=== PATIENT | male | born 1985 | race Caucasian/White ===

== ENCOUNTER 2021-03-06 15:24 | Inpatient (IN) | payer OTHER, MEDICARE, MEDICAID ==
[~2021-03-06 15:24] MED LIST: Iopamidol-370 76% 500 ML 1 ML ONE
[2021-03-06] MEDS ORDERED: Ondansetron PF 4 MG/2 ML Vial ONE (15:29)
[2021-03-06] MEDS ORDERED: Morphine 4 MG/ML VIAL ONE (15:29)
[2021-03-06] MEDS ORDERED: CEFAZOLIN 1 GM VIAL ONE (15:34)
[2021-03-06] MEDS ORDERED: Boostrix 0.5 ML (Tdap) VIAL ONE (15:34)
[2021-03-06 15:51] LABS: #Basophils 0.1 thou/uL (0.0-0.2); #Eosinphils 0.4 thou/uL (0.0-0.7); #Lymphocytes 4.3 thou/uL (1.20-3.40); #Monocytes 0.8 thou/uL (0.11-0.59); %Eosinophils 2.8 % (0.0-10.0); %Lymphocytes 33.9 % (21.0-51.0); %Monocytes 6.6 % (0.0-10.0); %Neutrophils 55.7 % (42.0-75.0); Hemoglobin 16.2 g/dL (14.0-18.0); Mean Corpuscular HGB CONC 34.5 g/dL (32.0-36.0); Mean Corpuscular Hemoglobin 30.9 pg (27.0-31.0); Mean Corpuscular Volume 89.7 fL (78.0-98.0); Mean Platelet Volume 8.1 fL (7.4-10.4); Platelet Count 302 thou/uL (130-400); RBC Distribution Width 12.5 % (11.5-14.5); Red Blood Cell (RBC) Count 5.24 mill/uL (4.70-6.10); White Blood Cell (WBC) Count 12.6 thou/uL (4.8-10.8)
[2021-03-06 16:13] LABS: ALT (SGPT) 86 U/L (8-55); AST (SGOT) 69 U/L (5-34); Acetaminophen Less than 6.0 mcg/mL (10.0-30.0); Albumin 4.7 g/dL (3.5-5.0); Alcohol Less than 10 mg/dL (Less than 10); Alkaline Phosphatase 153 U/L (40-110); Anion Gap 14 mmol/L (10-20); BUN (Urea Nitrogen) 14 mg/dL (8.9-20.6); Bilirubin, Total 0.5 mg/dL (0.2-1.2); Calc. Creatinine Clearance 0 mL/min (70-130); Calcium 9.4 mg/dL (7.8-10.44); Carbon Dioxide 25 mmol/L (22-29); Chloride 104 mmol/L (98-107); Globulin 3.3 g/dL (2.4-3.5); Glucose 135 mg/dL (70-105); Lipase 18 U/L (8-78); Potassium 4.1 mmol/L (3.5-5.1); Salicylate Less than 8.0 mg/dL (15.0-30.0); Sodium 139 mmol/L (136-145)
[2021-03-06] MEDS ORDERED: Fentanyl 100 MCG/2 ML VIAL ONE (16:36)
[2021-03-06] MEDS ORDERED: hydrALAZINE 20 MG/ML VIAL SLOW IVP PRN (17:22)
[2021-03-06] MEDS ORDERED: Ondansetron PF 4 MG/2 ML Vial IVP PRN (17:22)
[2021-03-06] MEDS ORDERED: Dextrose 50% Abboject 50 ML SYRINGE SLOW IVP PRN (17:22)
[2021-03-06] MEDS ORDERED: Dextrose 5% in Water 1,000 ML IV PRN (17:22)
[2021-03-06] MEDS ORDERED: Cyclobenzaprine 10 MG TAB PO PRN (17:24)
[2021-03-06] MEDS ORDERED: traMADol HCl 50 MG TAB PO PRN ×2 (17:24)
[2021-03-06 19:40] VITALS: BMI 32.1
[2021-03-06] MEDS ORDERED: Silver Nitrate Application 1 EACH TOP SCH (21:00)
[2021-03-06] MEDS: Acetaminophen 500 MG TAB PO SCH (21:19)
[2021-03-06] MEDS: Clindamycin 150 MG CAP PO SCH (21:20)
[2021-03-06] MEDS: Famotidine 20 MG TAB PO SCH (21:20)
[2021-03-06] MEDS: Gabapentin 300 MG CAP PO SCH (21:20)
[2021-03-06] MEDS: Senokot S 8.6-50 MG TAB PO SCH (21:21)
[2021-03-06] MEDS: Sodium Chloride 0.9% 1,000 ML IV SCH (21:22)
[2021-03-06] MEDS: Bupropion 150 MG SR TAB PO SCH (21:29)
[2021-03-06] MEDS: Morphine 4 MG/ML VIAL SLOW IVP PRN (23:27)
[2021-03-07] MEDS ORDERED: diphenhydrAMINE 50 MG/ML VIAL ONE (00:18)
[2021-03-07] MEDS ORDERED: diphenhydrAMINE 50 MG/ML VIAL IVP SCH (00:30)
[2021-03-07] MEDS: Acetaminophen 500 MG TAB PO SCH ×2 (01:04→09:01)
[2021-03-07 01:06] LABS: Amphetamine Not Detected (NotDetected); Barbiturates Screen Not Detected (NotDetected); Benzodiazepine Screen Not Detected (NotDetected); Cocaine Metabolite Screen Not Detected (NotDetected); Methadone Not Detected (NotDetected); Methamphetamine Not Detected (NotDetected); Opiate Screen Detected (NotDetected); Oxycodone Screen Not Detected (NotDetected); Phencyclidine (PCP) Not Detected (NotDetected); THC/Cannabinoid Screen Not Detected (NotDetected); Tricyclic Screen Not Detected (NotDetected)
[2021-03-07] MEDS ORDERED: GUAIFENESIN SF SOLN 200 MG/10 ML UDCUP PO PRN (02:18)
[2021-03-07] MEDS: Morphine 4 MG/ML VIAL SLOW IVP PRN (02:38)
[2021-03-07 07:26] LABS: #Basophils 0.1 thou/uL (0.0-0.2); #Eosinphils 0.2 thou/uL (0.0-0.7); #Lymphocytes 2.8 thou/uL (1.20-3.40); #Monocytes 1.1 thou/uL (0.11-0.59); #Neutrophils 8.4 thou/uL (1.40-6.50); %Basophils 0.9 % (0.0-1.0); %Eosinophils 1.6 % (0.0-10.0); %Lymphocytes 22.3 % (21.0-51.0); %Monocytes 8.6 % (0.0-10.0); %Neutrophils 66.6 % (42.0-75.0); Hemoglobin 14.3 g/dL (14.0-18.0); Mean Corpuscular HGB CONC 34.1 g/dL (32.0-36.0); Mean Corpuscular Hemoglobin 31.1 pg (27.0-31.0); Mean Corpuscular Volume 91.2 fL (78.0-98.0); Mean Platelet Volume 7.9 fL (7.4-10.4); Platelet Count 232 thou/uL (130-400); RBC Distribution Width 12.4 % (11.5-14.5); Red Blood Cell (RBC) Count 4.58 mill/uL (4.70-6.10); White Blood Cell (WBC) Count 12.6 thou/uL (4.8-10.8)
[2021-03-07 07:48] LABS: Anion Gap 16 mmol/L (10-20); BUN (Urea Nitrogen) 14 mg/dL (8.9-20.6); Calc. Creatinine Clearance 108 mL/min (70-130); Carbon Dioxide 25 mmol/L (22-29); Chloride 103 mmol/L (98-107); Glucose 164 mg/dL (70-105); Phosphorus 3.7 mg/dL (2.3-4.7); Potassium 3.9 mmol/L (3.5-5.1); Sodium 140 mmol/L (136-145)
[2021-03-07] MEDS: Famotidine 20 MG TAB PO SCH (09:00)
[2021-03-07] MEDS ORDERED: FLU VACC QS2021-22(6MOS UP)/PF 60 MCG/0.5 ML SYRINGE IM ONE (09:00)
[2021-03-07] MEDS: Gabapentin 300 MG CAP PO SCH (09:00)
[2021-03-07] MEDS ORDERED: Polyethylene Glycol 3350 17 GM Packet PO SCH (09:00)
[2021-03-07] MEDS: Bupropion 150 MG SR TAB PO SCH (09:01)
[2021-03-07] MEDS: Clindamycin 150 MG CAP PO SCH (09:01)
[2021-03-07] MEDS: Senokot S 8.6-50 MG TAB PO SCH (09:02)
[2021-03-07] MEDS: Sodium Chloride 0.9% 1,000 ML IV SCH (10:34)
[2021-03-07 12:39] VITALS: BP 124/74; TEMP 98.4
== END 2021-03-07 15:19 | disposition home or self-care (01) | DRG 563 ==
LOC: ERS 15:24 → SURG A 17:22
PROVIDERS: ADMIT Surgery; ATTEND Surgery
PROC: 0HQ0XZZ Repair Scalp Skin, External Approach (ICD-10-PCS; principal; 2021-03-06)
DX: S42.141A Displaced fracture of glenoid cavity of scapula, right shoulder, initial encounter for closed fracture (principal); E27.49 Other adrenocortical insufficiency; F32.A Depression, unspecified; S01.01XA Laceration without foreign body of scalp, initial encounter; F17.210 Nicotine dependence, cigarettes, uncomplicated; R91.1 Solitary pulmonary nodule; V23.4XXA Motorcycle driver injured in collision with car, pick-up truck or van in traffic accident, initial encounter
CPT/HCPCS: 36415; 70450; 71045; 71260; 72125; 74177; 80048; 80053; 80306; 80307; 83690; 83735; 84100; 85025; 90471; 90715; 93005; 94640; 96365; 96375; G0390; J0690; J1200; J2270; J2405; J3010; J7050; J7620

== ENCOUNTER 2022-06-11 19:58 | Emergency (ER) | payer OTHER ==
[2022-06-11] MEDS ORDERED: Boostrix 0.5 ML (Tdap) VIAL (>/=7 yrs of age) ONE (20:09)
[2022-06-11] MEDS ORDERED: CEFAZOLIN 1 GM VIAL ONE (20:44)
[2022-06-11] MEDS ORDERED: Lidocaine 1% PF 5 ML VIAL ONE (22:29)
== END 2022-06-11 23:50 | disposition home or self-care (01) ==
LOC: ERS 19:58
DX: S01.81XA Laceration without foreign body of other part of head, initial encounter (principal); S01.511A Laceration without foreign body of lip, initial encounter; E11.9 Type 2 diabetes mellitus without complications; F17.210 Nicotine dependence, cigarettes, uncomplicated; V89.2XXA Person injured in unspecified motor-vehicle accident, traffic, initial encounter; Z23 Encounter for immunization
CPT/HCPCS: 12011; 70450; 70486; 71045; 71260; 72125; 72170; 74177; 90471; 90715; 93005; 96374; J0690; Q9967